=== PATIENT | male | born 1975 | race Caucasian/White ===

== ENCOUNTER → 2020-04-03 | Outpatient (CLI) | payer OTHER ==
--- NOTE | 2020-04-04 05:36 | US ---
EXAMINATION TYPE: US kidneys/renal and bladder DATE OF EXAM: 04/03/2020 COMPARISON: NONE CLINICAL HISTORY: 44-year-old male N18.32 CKD STAGE 3. Diabetic TECHNIQUE: Multiple sonographic images of the kidneys and bladder are obtained. FINDINGS: EXAM MEASUREMENTS: Right Kidney: 10.9 x 6.0 x 5.1 cm Left Kidney: 11.3 x 6.4 x 6.2 cm Post Void Residual Volume: 5.5 mL Kidneys: No hydronephrosis. Bladder: wnl Bilateral Jets seen: yes Normal Post Void Residual: yes IMPRESSION: No hydronephrosis. No sonographic evidence for urinary retention. Small amount of postvoid bladder vo lume (6 mL) falls within acceptable limits.
== END | disposition home or self-care (01) ==
LOC: RADUSWWP 16:00
PROVIDERS: ATTEND Family Medicine
DX: N18.32 Chronic kidney disease, stage 3b (principal)
CPT/HCPCS: 76770

== ENCOUNTER 2021-02-07 06:26 | Day surgery (SDC) | payer OTHER ==
[2021-02-06 08:32] VITALS: BMI 38.0
[2021-02-07] MEDS ORDERED: LACTATED RINGERS 1,000 ML IV SCH (06:27)
[2021-02-07] MEDS ORDERED: LACTATED RINGERS 1,000 ML IV ONE ×2 (07:46)
[2021-02-07 07:50] VITALS: RESP 16; TEMP 97.9
[2021-02-07] MEDS ORDERED: PROPOFOL 10 MG/ML 20 ML VIAL IV ONE (07:55)
[2021-02-07 08:03] LABS: Glucose,Whole Blood 118 mg/dL (75-99)
--- NOTE | 2021-02-07 08:14 | P.PCN ---
Date of Procedure: 02/07/21 Procedure(s) Performed: BRIEF HISTORY: Patient is a 45-year-old pleasant male scheduled for an elective colonoscopy as a part of screening for colorectal neoplasia. PROCEDURE PERFORMED: Colonoscopy with snare polypectomy. PREOPERATIVE DIAGNOSIS: Screening for colon cancer. IV sedation per Anesthesia. PROCEDURE: After informed consent was obtained, the patient, was brought into the endoscopy unit. IV sedation was administered by Anesthesia under continuous monitoring. Digital rectal examination was normal. Initially the Olympus CF-160 flexible video colonoscope was inserted in the rectum, gradually advanced into the cecum without any difficulty. Careful examination was performed as the scope was gradually being withdrawn. Ileocecal valve and the appendiceal orifice were visualized and appeared normal. Prep was excellent. Mucosa of the cecum, had a 5 mm sessile polyp removed by snare polypectomy. In the ascending colon there was another 5-6 mm sessile polyp removed by snare polypectomy. The rest of the rest of the ascending colon, transverse colon, descending colon, sigmoid colon, and rectum appeared normal. In the rectum there was a 3 mm polyp removed by snare polypectomy. Scattered sigmoid diverticulosis seen. Retroflexion was performed in the rectum and no lesions were seen. The patient tolerated the procedure well. IMPRESSION: 5 mm sessile cecal polyp serous was snare polypectomy 5 mm sessile ascending colon polyp status post polypectomy 3 mm rectal polyp status post poly pectomy Scattered sigmoid diverticulosis RECOMMENDATIONS: Findings of this examination were discussed with the patient as well as his family. He was advised to follow with the biopsy results. If the biopsy reveals adenoma he can have a repeat colonoscopy in 3-5 years.
[2021-02-07 08:46] VITALS: BP 137/80; PULSE 76
== END 2021-02-07 09:05 | disposition home or self-care (01) ==
LOC: ORWHC2ENDO 06:26
PROVIDERS: ATTEND Internal Medicine Gastroenterology
DX: Z12.11 Encounter for screening for malignant neoplasm of colon (principal); D12.2 Benign neoplasm of ascending colon; D12.0 Benign neoplasm of cecum; D12.8 Benign neoplasm of rectum; K57.30 Diverticulosis of large intestine without perforation or abscess without bleeding; E11.9 Type 2 diabetes mellitus without complications; I10 Essential (primary) hypertension; E78.5 Hyperlipidemia, unspecified; Z79.899 Other long term (current) drug therapy
CPT/HCPCS: 88305; 45385; J2704

== ENCOUNTER 2022-07-20 14:21 | Observation (INO) | payer OTHER ==
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
[2022-07-20 15:20] LABS: Basophils % (A) 1 %; Eosinophils % (A) 1 %; HCT 41.1 % (39.0-53.0); Lymphocytes # (A) 0.9 k/uL (1.0-4.8); Lymphocytes % (A) 20 %; MCH 29.8 pg (25.0-35.0); MCV 87.7 fL (80.0-100.0); Mean Platelet Volume 7.4; Monocytes # (A) 0.3 k/uL (0-1.0); Monocytes % (A) 7 %; Neutrophils % (A) 68 %; Platelet Count 174 k/uL (150-450); Poikilocytosis Slight; RBC 4.68 m/uL (4.30-5.90); RDW 14.6 % (11.5-15.5); WBC 4.4 k/uL (3.8-10.6)
[2022-07-20 15:24] LABS: Albumin 3.9 g/dL (3.5-5.0); Calcium 8.2 mg/dL (8.4-10.2); Potassium 4.5 mmol/L (3.5-5.1); Total Bilirubin 0.9 mg/dL (0.2-1.3)
--- NOTE | 2022-07-20 15:28 | XR ---
EXAMINATION TYPE: XR chest 2V DATE OF EXAM: 07/20/2022 COMPARISON: NONE HISTORY: Chest pain. TECHNIQUE: Frontal and lateral views of the chest are obtained. FINDINGS: There is no focal air space opacity, pleural effusion, or pneumothorax seen. The cardiac silhouette size is within normal limits. The osseous structures are intact. IMPRESSION: No acute process.
[2022-07-20 15:53] LABS: INR 1.1 (<1.2); Partial Thromboplastin Time 25.2 sec (22.0-30.0); Prothrombin Time 11.8 sec (9.0-12.0)
[2022-07-20] MEDS ORDERED: NITROGLYCERIN OINT 1 INCH/GM PACKET TOPICAL STA (16:40)
[2022-07-20] MEDS ORDERED: ASPIRIN 81 MG PO STA (16:40)
[2022-07-20] MEDS ORDERED: SODIUM CHLORIDE 0.9% 1,000 ML IV STA (16:41)
[2022-07-20] MEDS ORDERED: SODIUM CHLORIDE 0.9% 500 ML 500 ML IV STA (16:41)
[2022-07-20] MEDS ORDERED: DEXTROSE 50% SYRINGE 50 ML IVP PRN ×2 (17:11)
[2022-07-20] MEDS ORDERED: NALOXONE 0.4 MG/ML 1 ML VIAL IV PRN (17:12)
[2022-07-20] MEDS ORDERED: ACETAMINOPHEN TAB 325 MG TAB PO PRN (17:12)
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
[2022-07-20] MEDS: NITROGLYCERIN OINT 1 INCH/GM PACKET TOPICAL SCH ×2 (17:28→23:48)
[2022-07-20] MEDS: INSULIN ASPART (NovoLOG) 100 UNIT/ML VIAL SQ SCH ×2 (17:48→21:27)
[2022-07-20 17:49] LABS: Glucose,Whole Blood 122 mg/dL (70-110)
--- NOTE | 2022-07-20 18:38 | US ---
EXAMINATION TYPE: US thyroid st tissue head/neck DATE OF EXAM: 07/20/2022 COMPARISON: NONE CLINICAL HISTORY: Neck swelling. GLAND SIZE: Right Lobe: 6.2 x 1.6 x 2.9 cm Overall Parenchyma: homogenous Left Lobe: 6.0 x 2.2 x 2.8 cm Overall Parenchyma: homogeneous Isthmus Thickness: 0.7 cm NODULES RIGHT: # of nodules measured on right: 0 LEFT: # of nodules measured on left: 0 ISTHMUS: # of nodules measured in the isthmus: 0 Bilateral neck scanned, multiple lymph nodes visualized. Largest on right side = 1.5 x 1.5 x 1.2cm. L argest on left side = 1.4 x 0.6 x 0.6cm. No organizing fluid collections. IMPRESSION: 1. Prominent bilateral neck lymph nodes finding is rather nonspecific and could be reactive and seco ndary to infectious/inflammatory process. 2. No thyroid nodules. Consider evaluation with CT neck with IV contrast.
[2022-07-20 19:08] LABS: Amylase 47 U/L (30-110); Lipase 99 U/L (23-300)
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
[2022-07-20] MEDS ORDERED: NON FORMULARY DRUG (Cinnamon Bark [Cinnamon] 500 MG Capsule) PO SCH (21:00)
[2022-07-20] MEDS ORDERED: ATORVASTATIN 40 MG TAB PO SCH (21:00)
[2022-07-20 21:22] LABS: Glucose,Whole Blood 120 mg/dL (70-110)
[2022-07-20] MEDS: HEPARIN SODIUM,PORCINE/PF 5,000 UNIT/0.5 ML SYRINGE SQ SCH (23:49)
[2022-07-21] MEDS: NITROGLYCERIN OINT 1 INCH/GM PACKET TOPICAL SCH ×2 (06:11→12:22)
[2022-07-21 08:23] VITALS: RESP 20
[2022-07-21] MEDS ORDERED: CHOLECALCIFEROL 25 MCG (1000 IU) TABLET PO SCH (09:00)
[2022-07-21] MEDS ORDERED: LINAGLIPTIN 5 MG TABLET PO SCH (09:00)
[2022-07-21] MEDS ORDERED: VALSARTAN 160 MG TAB PO SCH (09:00)
[2022-07-21] MEDS ORDERED: DAPAGLIFLOZIN PROPANEDIOL 10 MG TABLET PO SCH (09:00)
[2022-07-21] MEDS ORDERED: MELOXICAM 7.5 MG TAB PO SCH (09:00)
[2022-07-21] MEDS ORDERED: amLODIPine 10 MG TAB PO SCH (09:00)
[2022-07-21] MEDS ORDERED: ASPIRIN 81 MG PO SCH (09:00)
[2022-07-21] MEDS ORDERED: ATORVASTATIN 20 MG TAB PO SCH (09:00)
[2022-07-21] MEDS: INSULIN ASPART (NovoLOG) 100 UNIT/ML VIAL SQ SCH ×2 (09:24→12:19)
[2022-07-21] MEDS: HEPARIN SODIUM,PORCINE/PF 5,000 UNIT/0.5 ML SYRINGE SQ SCH ×2 (09:49→15:37)
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
[2022-07-21 12:19] LABS: Glucose,Whole Blood 136 mg/dL (70-110)
--- NOTE | 2022-07-21 13:54 | CA ---
Stress Echo Report Alcides Loomis Age: 46 Gender: M : 1975 Exam Date: 07/21/2022 10:55 Exam Location: [facility] Ht (in): 70 Wt (lb): 275 Ordering Physician: Daisy Rogers Referring Physician: [id number] Manager Game: Roland Beaulieu Technologist Procedure CPT: Indication: CP ICD-9 Codes: Rhythm: Patient History: Cardiac Medications: SEE CHART Medications in past 24 hours: Contrast: N/A Stress Results Protocol: Jorje Total dose(mL): Exercise Duration (min:sec): 6:[address] Depression (mm): Angina Score: Gonzalez Score: METS: 7.1 Resting HR: 102 Resting BP: 141 / 77 Peak HR: 152 Peak BP: 232 / 76 Max Predicted HR: 174 87 % Max Predicted HR Target HR: 148 Double Product: 70205 Stress Summary: The patient's target heart rate was achieved BP Response: Reason for Termination: Reached target heart rate or work-load Cardiac Symptoms: SHORT OF BREATH ECG Analysis Resting ECG: Normal sinus rhythm, normal ECG Stress ECG: No abnormal ST/T wave changes with exercise Arrhythmia: None Echo Analysis Resting Echo: Normal resting echocardiogram. Peak Echo Analysis: No wall motion changes with stress. MEASUREMENTS (Male/Female) Normal Values CONCLUSIONS No ECG evidence of ischemia with exercise. Normal treadmill stress echocardiogram. Dr. Meme Garcia MD (Electronically Signed) Final Date: 21 July 2022 13:53
--- NOTE | 2022-07-21 13:56 | CA ---
Transthoracic Echo Report Name: Alcides Loomis Age: 46 Gender: M : 1975 Exam Date: 07/21/2022 08:48 Exam Location: [place] [facility] Ht (in): 70 Wt (lb): 275 Ordering Physician: Jarrod Loera MD Attending/Referring Phys: [employer]ing [employer] Operator Terrell Valdez RDCS Procedure CPT: Indications: CP Cardiac Hx: HTN; CAD; CP; Obesity; Hyper Cholest.; D. M type II Technical Quality: Poor Contrast 1: Lumason Total Dose (mL): 4 Contrast 2: Total Dose (mL): MEASUREMENTS (Male / Female) Normal Values 2D ECHO LV Diastolic Diameter PLAX 4.6 cm 4.2 - 5.9 / 3.9 - 5.3 cm LV Systolic Diameter PLAX 2.6 cm IVS Diastolic Thickness 1.3 cm 0.6 - 1.0 / 0.6 - 0.9 cm LVPW Diastolic Thickness 1.3 cm 0.6 - 1.0 / 0.6 - 0.9 cm LV Relative Wall Thickness 0.6 RV Internal Dim ED PLAX 3.2 cm LA Systolic Diameter LX 3.2 cm 3.0 - 4.0 / 2.7 - 3.8 cm Ascending Aorta Diameter 2.8 cm M-MODE Aortic Root Diameter MM 3.1 cm LA Systolic Diameter MM 3.1 cm LA Ao Ratio MM 1.0 MV E Point Septal Separation 1.0 cm AV Cusp Separation MM 1.9 cm DOPPLER AV Peak Velocity 127.5 cm/s AV Peak Gradient 6.5 mmHg LVOT Peak Velocity 87.0 cm/s LVOT Peak Gradient 3.0 mmHg Mitral E Point Velocity 81.1 cm/s Mitral A Point Velocity 75.4 cm/s Mitral E to A Ratio 1.1 MV Deceleration Time 120.7 ms MV E' Velocity 5.2 cm/s Mitral E to MV E' Ratio 15.6 TR Peak Velocity 187.1 cm/s TR Peak Gradient 14.0 mmHg Right Ventricular Systolic Press 19.0 mmHg PV Peak Velocity 119.8 cm/s PV Peak Gradient 5.7 mmHg FINDINGS Left Ventricle Left ventricular ejection fraction is estimated at 55-60 %. Normal left ventricular systolic function with no obvious regional wall motion abnormalities. Left ventricular cavity size normal. Right Ventricle Normal right ventricular size and function. Right Atrium Normal right atrial size. Left Atrium Normal left atrial size. Mitral Valve Mitral valve thickened. Trace mitral regurgitation. Aortic Valve Trileaflet aortic valve.aortic valve not well visualized. Tricuspid Valve Mild tricuspid regurgitation.structurally normal tricuspid valve. Pulmonic Valve Pulmonic valve not well visualized. Pericardium Normal pericardium. No pericardial effusion. Aorta Normal size aortic root and proximal ascending aorta. CONCLUSIONS Lumason ECHO contrast used for improved visualization of the endocardial borders (inadequate visualization of two or more contiguous segments). Normal left ventricle size and systolic function Trace mitral with mild tricuspid regurgitation Previewed by: Dr. Meme Garcia MD (Electronically Signed) Final Date: 21 July 2022 13:56
[2022-07-21 14:08] VITALS: BP 133/82; PULSE 101; TEMP 98.9
[2022-07-21 14:19] LABS: HCT 39.9 % (39.6-50.0); HGB 12.6 g/dL (13.0-17.0); MCH 28.8 pg (27.0-32.0); MCHC 31.6 g/dL (32.0-37.0); MCV 91.3 fL (80.0-97.0); Mean Platelet Volume 9.7 fL (9.5-12.2); NRBC Per 100 WBC 0 /100 WBCS (0.0-0.0); Platelet Count 168 X 10*3/uL (140-440); RBC 4.37 X 10*6/uL (4.40-5.60); RDW 14.7 % (11.5-14.5); WBC 5.29 X 10*3/uL (4.50-10.00)
[2022-07-21 15:14] LABS: Basophils # (A) 0.06 X 10*3/uL (0.00-0.10); Basophils % (A) 1.1 %; Eosinophils # (A) 0.09 X 10*3/uL (0.04-0.35); Eosinophils % (A) 1.7 %; Immature Grans, Automated 0.4 %; Lymphocytes # (A) 1.95 X 10*3/uL (0.90-5.00); Lymphocytes % (A) 36.9 %; Monocytes # (A) 0.67 X 10*3/uL (0.20-1.00); Monocytes % (A) 12.7 %; Neutrophils % (A) 47.2 %; RBC Morphology NORMAL
--- NOTE | 2022-07-21 15:51 | P.DS ---
Providers Date of admission: 07/20/22 17:14 Expected date of discharge: 07/21/22 Attending physician: Jarrod Loera MD Consults: 07/20/22 17:13 Consult Physician Routine Consulting Provider: Gabriel Vu Consult Reason/Comments: CP Do you want consulting provider notified?: Yes Primary care physician: Alexandro Hidalgo Hospital Course: Discharge Diagnosis: Intermittent chest pain, shortness of breath, and decreased exercise tolerance. Acute coronary event ruled out. Prominent diffusely scattered lymph nodes throughout the neck, mediastinum, bilateral axilla, and upper abdomen. The testing for mumps was completed, however these results are not available at this time. Discussed with the lab and these results will not be available for likely another 3 days. Patient instructed that he can retrieve this information by accessing his [facility] patient portal and reviewing result and that he will also need to discuss these results with his primary care provider (Dr. Hidalgo) at his follow-up visit. It was also highly recommended that pt follow-up with his PCP for reportedly scheduled repeat CT in August for follow-up to ensure resolution of the scattered enlarged lymph nodes throughout her parotid glands, mediastinoscopy, bilateral axilla, and upper abdomen as we discussed. Hypertension Hyperlipidemia Egx-[id number] diabetes mellitus Hospital Course: Patient is a very pleasant 46-year-old male with a past medical history of hypertension, hyperlipidemia, and qtr-mhyczmu-xfczyohot diabetes mellitus. He presented to the emergency department as instructed by his PCP for concerns of abnormal EKG. In addition patient reported feeling winded/short of breath over the past week along with a decreased exercise tolerance compared to his baseline. Upon arrival to the emergency department patient underwent full evaluation and was found to be tachycardic with heart rate in 120s, EKG was completed showing sinus tachycardia with no noted T-wave or ST abnormalities upon personal review and interpretation. Chest x-ray completed and was negative for acute cardiopulmonary process. Labs completed and reviewed. CBC was unremarkable. Coagulation profile also normal findings. BMP revealing slight elevation in renal function with BUN of 21, creatinine 1.37, and GFR of 62. Troponin was negative at less than 0.012. D-dimer was elevated at 1.19 and patient was taken for a CTA chest. CTA chest ruled out pulmonary emboli however did reveal prominent scattered lymph nodes including the mediastinum, bilateral axilla, and upper abdomen with radiologist recommending follow-up CT in 1-2 months to ensure resolution. Ultrasound thyroid and soft tissue of neck was then completed showing prominent bilateral neck lymph nodes with finding reported to be nonspecific and likely due to reactive from infectious/inflammatory process. Patient was admitted under our services with consultation to cardiology. Troponins were trended overnight all negative at less than 0.0123 draws. Influenza A, influenza B B, RSV, Covid PCR, and heterophil anti-body were completed all negative. Mumps IgM also obtained and sent to lab for analysis and currently pending results. Echocardiogram completed showing normal EF of 55-60% with mild mitral and tricuspid regurgitation. He was evaluated by cardiology and recommended to undergo a stress echo which showed no ECG evidence for ischemia with exercise and normal treadmill stress echocardiogram. Cardiology with no further inpatient recommendations at this time, recommending outpatient follow-up with their office. Patient is medically stable for discharge at this time and to follow up outpatient with PCP in 1-2 days and cardiology in 1-2 weeks. Physical exam: Patient seen and examined at bedside. Patient reports feeling great and currently denies having any cough or congestion, sinus pressure or drainage, sore throat, dysphagia, chest pain or palpitations, shortness of breath, nausea, vomiting, gastric reflux or any other complaints at this time. Vital signs reviewed and stable. General: Nontoxic, no distress and appears stated age. Derm: Skin warm and dry, normal coloration for ethnicity. Head: Atraumatic, normocephalic and symmetric. Eyes: EOMs intact, no lid lag, and anicteric sclera Mouth: no lip lesions, mucus membranes moist Cardiovascular: regular rate and rhythm with normal S1S2, no murmur, positive posterior tibial pulses bilaterally, and cap refill < 2 seconds. Lungs: Respirations even, regular, and unlabored on room air. Lungs CTA bilaterally, no rhonchi, no rales, no wheezing, and no accessory muscle usage. Abdominal: soft, nontender to palpation, no guarding, no appreciable organomegaly Ext: ROM intact. No gross muscle atrophy, no edema, no contractures Neuro: Speech clear, face symmetrical and CN II-XII grossly intact with no noted focal neuro deficits Psych: Alert and oriented to person, place, time, and situation. Appropriate and pleasant affect. A total of 33 minutes of time were spent preparing this complex discharge summary. Pt was discharged on 07/21/22 at 3:44 PM Patient was seen independently by Nurse Practitioner. This document was prepared using [employer] dictation software. Please allow for errors in cabinet worker while rare they do occur. Ron Wall NP rendered care for this patient independently, reviewed the findings and plan as documented in the note above. I did not physically speak with or examine the patient on this date. Patient Condition at Discharge: Stable Plan - Discharge Summary Discharge Rx Participant: No New Discharge Prescriptions: Continue Empagliflozin/Linagliptin [Glyxambi 25 mg-5 mg Tablet] 1 tab PO DAILY Cinnamon Bark [Cinnamon] 500 mg PO BID Meloxicam [Mobic] 7.5 mg PO DAILY Amlodipine Besylate/Valsartan [Amlodipine-Valsartan 10-160 mg] 1 tab PO DAILY Cholecalciferol [Vitamin D3 (25 Mcg = 1000 Iu)] 25 mcg PO DAILY Naproxen Sodium [Aleve] 440 mg PO BID PRN PRN Reason: Pain Atorvastatin [Lipitor] 40 mg PO HS Discharge Medication List Amlodipine Besylate/Valsartan [Amlodipine-Valsartan 10-160 mg] 1 tab PO DAILY 02/05/21 [History] Cholecalciferol [Vitamin D3 (25 Mcg = 1000 Iu)] 25 mcg PO DAILY 02/06/21 [History] Cinnamon Bark [Cinnamon] 500 mg PO BID 02/06/21 [History] Empagliflozin/Linagliptin [Glyxambi 25 mg-5 mg Tablet] 1 tab PO DAILY 02/06/21 [History] Atorvastatin [Lipitor] 40 mg PO HS 07/20/22 [History] Meloxicam [Mobic] 7.5 mg PO DAILY 07/20/22 [History] Naproxen Sodium [Aleve] 440 mg PO BID PRN 07/20/22 [History] Follow up Appointment(s)/Referral(s): Meme Garcia MD [STAFF PHYSICIAN] - 2 Weeks (Office will call you with a date and time for follow up. ) Alexandro Hidalgo MD [Primary Care Provider] - 1-2 Days (Office did not answer, pt. to make own haider. ) Ambulatory/Diagnostic Orders: Basic Metabolic Panel [LAB.AMB] Time Frame: 3 Days, Location: None Selected Patient Instructions/Handouts: Chest Pain (DC), Mumps in Adults (DC) Activity/Diet/Wound Care/Special Instructions: Activity: As tolerated. Take breaks as needed. Diet: Heart healthy and carb consistent diet. Avoid salts, or foods with hidden salts such as canned or boxed foods and frozen dinners. Extra salt makes your heart work harder and traps the fluid in your body for longer. Special Instructions: Take all of your medications as directed and remember to keep all of your doctor's appointments and follow-up as needed. The testing for mumps was completed, however these results are not available at this time. Discussed with the lab and these results will not be available for likely another 3 days. You can retrieve this information by accessing your [facility] patient portal and reviewing results. You will also need to discuss these results with your primary care provider upon your follow-up visit. It is also highly recommended that you follow-up with your PCP for scheduled repeat CT in August for follow-up to ensure resolution of the scattered enlarged lymph nodes throughout your parotid glands, mediastinum, bilateral axilla, and upper abdomen as we discussed. Thank you for allowing us to participate in your care, it was truly a pleasure having you for our patient!!! Discharge Disposition: HOME SELF-CARE
[2022-07-21 17:18] LABS: African American GFR (CKD) 118.3 (60.0-200.0); BUN/Creat Ratio 14.89 Ratio (12.00-20.00); Blood Urea Nitrogen 13.4 mg/dL (9.0-27.0); Calcium 8.5 mg/dL (8.7-10.3); Chloride 106 mmol/L (96-109); Chol/HDL Ratio 7.08 Ratio; Glucose 136 mg/dL (70-110); LDL Cholesterol,Calculated 24.8 mg/dL (0.0-131.0); Non-African American GFR(CKD) 102.1 (60.0-200.0); Potassium 4.4 mmol/L (3.5-5.5); Sodium 140 mmol/L (135-145)
== END 2022-07-21 16:25 | disposition home or self-care (01) ==
LOC: EC 14:21 → 6NMEDSUR 17:14
PROVIDERS: ADMIT Family Medicine; ATTEND Family Medicine
DX: R07.89 Other chest pain (principal); R06.02 Shortness of breath; R00.0 Tachycardia, unspecified; N17.9 Acute kidney failure, unspecified; I10 Essential (primary) hypertension; E78.5 Hyperlipidemia, unspecified; R22.1 Localized swelling, mass and lump, neck; E11.9 Type 2 diabetes mellitus without complications; Z20.822 Contact with and (suspected) exposure to COVID-19; Z83.3 Family history of diabetes mellitus; Z79.84 Long term (current) use of oral hypoglycemic drugs; Z79.899 Other long term (current) drug therapy; Z98.890 Other specified postprocedural states; Z79.1 Long term (current) use of non-steroidal anti-inflammatories (NSAID)
CPT/HCPCS: 96372; 96360; 99285; 36415; 93005; 93351; 86735; 85379; 80061; 80053; 80048; 82150; 83690; 83735; 84484; 85025 ×2; 85610; 85730; 86308; 87636; 71046; 76536; 71275; G0378 ×2; C8929; Q9950; Q9967; J1644; 93306

== ENCOUNTER 2024-03-13 09:41 | Emergency (ER) | payer BC, OTHER ==
[2024-03-13 09:49] VITALS: RESP 16; TEMP 98.2
[2024-03-13 10:13] LABS: Basophils % (A) 0 %; Eosinophils # (A) 0.2 k/uL (0-0.7); Eosinophils % (A) 2 %; HCT 47.5 % (39.0-53.0); HGB 15.8 gm/dL (13.0-17.5); Lymphocytes # (A) 1.2 k/uL (1.0-4.8); Lymphocytes % (A) 16 %; MCH 30.5 pg (25.0-35.0); MCHC 33.4 g/dL (31.0-37.0); MCV 91.5 fL (80.0-100.0); Mean Platelet Volume 6.6; Monocytes # (A) 0.4 k/uL (0-1.0); Monocytes % (A) 5 %; Neutrophils # (A) 5.6 k/uL (1.3-7.7); Neutrophils % (A) 75 %; Platelet Count 172 k/uL (150-450); RBC 5.19 m/uL (4.30-5.90); RDW 13.1 % (11.5-15.5); WBC 7.4 k/uL (3.8-10.6)
--- NOTE | 2024-03-13 10:15 | XR ---
EXAMINATION TYPE: XR chest 2V DATE OF EXAM: 03/13/2024 10:09 AM COMPARISON: None CLINICAL INDICATION: Male, 48 years old with history of difficulty breathing; [facility] TECHNIQUE: XR chest 2V Frontal and lateral views of the chest. FINDINGS: Lungs/Pleura: There is no evidence of pleural effusion, focal consolidation, or pneumothorax. Pulmonary vascularity: Unremarkable. Heart/mediastinum: Cardiomediastinal silhouette is unremarkable. Musculoskeletal: No acute osseous pathology. Other findings: None IMPRESSION: No acute cardiopulmonary disease/process. [facility], , 03/13/2024 10:13 AM
[2024-03-13 10:29] LABS: ALT 668 U/L (4-49); AST 551 U/L (17-59); African American GFR (CKD) >90 (>60 ml/min/1.73 sqM); Albumin 4.9 g/dL (3.5-5.0); Alkaline Phosphatase 127 U/L (38-126); Anion Gap 9 mmol/L; Blood Urea Nitrogen 17 mg/dL (9-20); Calcium 9.5 mg/dL (8.4-10.2); Carbon Dioxide 24 mmol/L (22-30); Chloride 108 mmol/L (98-107); Glucose 136 mg/dL (74-99); Non-African American GFR(CKD) 88 (>60 ml/min/1.73 sqM); Potassium 3.8 mmol/L (3.5-5.1); Sodium 141 mmol/L (137-145); Total Bilirubin 1.6 mg/dL (0.2-1.3); Total Protein 7.8 g/dL (6.3-8.2)
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
[2024-03-13 11:04] LABS: Partial Thromboplastin Time 22.6 sec (22.0-30.0)
[2024-03-13 13:13] VITALS: BP 138/71; PULSE 85
== END 2024-03-13 13:10 | disposition left against medical advice (07) ==
LOC: EC 09:41
DX: I20.0 Unstable angina (principal); E11.9 Type 2 diabetes mellitus without complications; Z79.899 Other long term (current) drug therapy; Z53.29 Procedure and treatment not carried out because of patient's decision for other reasons
CPT/HCPCS: 36415; 71046; 80053; 84484; 85025; 85610; 85730; 93005; 99285